=== PATIENT | male | born 1965 | race Caucasian/White ===

== ENCOUNTER 2018-07-09 13:39 | Outpatient (CLI) | payer OTHER ==
[~2018-07-09] VITALS: Ht 188 cm; Wt 105.5 kg
--- NOTE | ~2018-07-09 | HEMODYNAMI ---
PATIENT:ASUNCION KHAN MEDICAL RECORD: [id number] : 67 [id number] ADMISSION DATE: 07/09/18 Generatedon:07/09/201816:20 Patient name: ASUNCION KHAN Patient #: [id number] SSN: DO B: 1965 Date of study: 07/09/2018 Page: Of Hemodynamic Procedure Report Patient Data Patient Demographics Procedure consent was obtained First Name: ASUNCION Gender: Male Last Name: BILL : 1965 Patient #: [id number] Age: 53 year(s) Race: Unknown Additional ID: [id number] Contact details Address: [facility] [address] KNOWN ADDRESS State: [place] City: [facility] Zip code: [address] Past Medical History Allergies: No known allergies Admission Admission Data Admission Date: 07/09/2018 Admission Time: 13:39 Arrival Date: 07/09/2018 Arrival Time: 13:39 Admit Source: Other Room #: D.2128 Weight (lbs.): 230.38 Weight (kg.): 104.5 Lab Results Lab Result Date: 07/09/2018 Lab Result Time: 0:00 Biochemistry Name Units Result Min Max BUN mg/dl 11 --(-*--)-- 7 18 Creatinine mg/dl 1 --(--*-)-- 0.6 1.3 CBC Name Units Result Min Max Hemoglobin g/dl 15.2 --(-*--)-- 13.5 17.5 Procedure Procedure Types Cath Procedure Diagnostic Procedure LHC LHC w/Coronaries PCI Procedure Coronary Stent Coronary Stent Initial Procedure Description Procedure Date Procedure Date: 07/09/2018 Procedure Start Time: 15:54 Procedure End Time: 16:14 Procedure Staff Name Function Viv Jackson RT Monitor Vu Valverde RN Nurse Amanda Núñez RN Lapel Padder Titi Cash MD Performing Physician Stan Rodríguez RT Scrub Procedure Data Cath Procedure Fluoroscopy Diagnostic fluoroscopy Total fluoroscopy Time: 4.8 time: 4.8 min min Diagnostic fluoroscopy Total fluoroscopy dose: dose: 1396 mGy 1396 mGy Contrast Material Contrast Material Type Amount (ml) Isovue 300 101 Entry Location Entry Primary Successful Side Size Upsize Upsize Entry Closure Succes sful Closure Location (Fr) 1 (Fr) 2 (Fr) Remarks Device Remarks Femoral Right 6 Fr Exoseal artery Short Estimated blood loss: 5 ml Diagnostic catheters Device Type Used For End Catheter Placement MULTIPACK Pigtail 5 Fr LV Angiography catheter MULTIPACK JL 4.0 5Fr Left Coronary catheter Angiography MULTIPACK 3DRC 5Fr Right Coronary catheter Angiography Procedure Complications No complications Procedure Medications Medication Administration Route Dosage Oxygen etCO2 Nasal cannula 2 l/min Lidocaine 2% added to field 20 Heparin Flush Bag added to field 2 bags (1000units/500ml NS) 0.9% NaCl I.V. 100 ml/hr Versed I.V. 2 mg Fentanyl I.V. 100 mcg Versed I.V. 2 mg Fentanyl I.V. 100 mcg Heparin Bolus I.V. 4000 units Integrilin (Bolus I.V. 9.5 ml 2mg/ml) Nitroglycerin IC/IA I.C. 200 mcg Hemodynamics Rest HGB: 15.2 (g/dl) Heart Rate: 57 (bpm) Pressure Samples Time Site Value (mmHg) Purpose Heart Use Rate(bpm) 15:57 LV 91/-30,18 Snapshot 63 Snapshots Pre Cath Intra NCS Post Cath Vital Signs Time Heart Resp SPO2 etCO2 NIBP (mmHg) Rhythm Pain Sedation Rate (ipm) (%) (mmHg) Status Level (bpm) 15:51:09 57 16 100 17.9 140/79(111) NSR 0 (11) 10(A) , No pain 15:55:27 59 15 100 25.4 127/77(100) NSR 0 (11) 10(A) , No pain 15:59:41 55 17 100 0 122/73(101) NSR 0 (11) 10(A) , No pain 16:03:51 64 12 98 21.6 126/79(100) NSR 0 (11) 9(A) , No pain 16:08:05 65 13 100 33.6 124/72(89) NSR 0 (11) 9(A) , No pain 16:12:17 80 18 100 26.1 120/73(95) NSR 0 (11) 10(A) , No pain Medications Time Medication Route Dose Verified Delivered Reason Notes Effectiveness by by 15:53:20 Oxygen etCO2 2 Titiagnes Walls used for Nasal l/min Shailesh Cash MD procedure cannula 15:53:58 Lidocaine 2% added 20ml Titi Titi for local to vial Shailesh Cash MD anesthetic field 15:54:05 Heparin Flush added 2 Titiagnes Begumrey used for Bag to bags Shailesh Cash MD procedure (1000units/500ml field NS) 15:54:14 0.9% NaCl I.V. 100 Titi Buffie Per physician ml/hr Shailesh Núñez RN 15:55:53 Versed I.V. 2 mg Titi Joyie for sedation Shailesh Núñez RN 15:56:05 Fentanyl I.V. 100 Titi Buffie for sedation mcg Shailesh Núñez RN 15:58:08 Versed I.V. 2 mg Titi Patel for sedation Shailesh Núñez RN 15:58:12 Fentanyl I.V. 100 Titi Patel for sedation mcg Shailesh Núñez RN 16:04:11 Heparin Bolus I.V. 4000 Titi Joyie for verif ied units Shailesh Núñez RN anticoagulation with dr cash 16:06:29 Integrilin I.V. 9.5 Titi Joyie for waste d (Bolus 2mg/ml) ml Shailesh Núñez RN antiplatelet 0.5 ml therapy of vial 16:10:29 Nitroglycerin I.C. 200 Titi Walls for IC/IA mcg Shailesh Cash MD vasodilation Procedure Log Time Note 15:20:57 Stan Rodríguez RT(R) sent for patient. Start room use. 15:20:58 Time tracking: Regular hours (M-F 7:00 - 5:00) 15:21:02 Plan of Care:Hemodynamics will remain stable., Cardiac rhythm will remain stable., Comfort level will be maintained., Respiratory function will remain adequate., Patient/ family verbilizes understanding of procedure., Procedure tolerated without complication., Recovers from procedure without complications.. 15:28:28 Patient Weight : 230.38 lbs 15:28:32 Admit Source: Other 15:28:39 Arrival Date: 07/09/2018 1:39:00 PM 15:41:40 Patient received from Pre/Post Procedure Room to CCL 1 Alert and oriented. Tansferred to table in Supine position. 15:41:41 Warm blankets applied, and lacey hugger turned on for patient comfort. 15:41:42 Correct patient and procedure confirmed by team. 15:41:44 ECG and BP/O2 sat monitors applied to patient. 15:41:46 Signed procedure consent form obtained from patient. 15:50:01 Vital chart was started 15:50:01 Baseline sample Acquired. 15:50:08 Rhythm: sinus rhythm 15:50:23 Full Disclosure recording started 15:50:37 H&P Date Dictated: 07/09/2018 New H&P dictated by physician.. 15:50:39 Pre-op teaching completed and patient verbalized understanding. 15:50:39 Pre-procedure instructions explained to patient. 15:50:40 Family in waiting room. 15:51:02 Patient NPO since Lunch. 15:51:15 Patient allergic to No known allergies 15:51:18 Is the patient allergic to Iodine/contrast media? No. 15:51:20 Was the patient premedicated? No 15:51:26 Is patient on blood thinner?Yes 15:51:48 ACC The patient was administered the following blood thiners within the last 24 hours: ACCPlavix 15:51:50 Patient diabetic? No. 15:51:52 ----Pre-sedation anethsthesia assessment.---- 15:52:16 Previous problem with sedation/anesthesia? No ? 15:52:18 Snore? Yes 15:52:19 Sleep apnea? No 15:52:20 Deviated septum? No 15:52:22 Opens mouth fully? Yes 15:52:23 Sticks out tongue? Yes 15:52:25 Airway obstruction? No ? 15:52:27 Dentures? No ? 15:52:30 Pre procedure: right dorsailis pedis pulse 2+ Normal; easily identifiable; not easily obliterated 15:52:35 Modified Tremayne's test Ulnar > 7 seconds. 15:52:56 Patient pain scale 0/10 ?. 15:53:02 IV patent on arrival in left antecubital with 0.9% NaCl at 10ml/hr. 15:53:19 Lab Result : Hemoglobin 15.2 g/dl 15:53:19 Lab Result : Creatinine 1 mg/dl 15:53:19 Lab Result : BUN 11 mg/dl 15:53:20 Oxygen 2 l/min etCO2 Nasal cannula was administered by Titi Cash MD; used for procedure; 15:53:22 Lab results completed and on chart. 15:53:25 Right groin area was prepped with chlora-prep and draped in sterile fashion 15:53:26 Alarms reviewed by R. N. 15:53:27 Sharps counted by scrub and verified by R.N. 15:53:31 Physician arrived 15:53:32 --------ALL STOP TIME OUT------ 15:53:33 Final Timeout: patient, procedure, and site verified with staff and physician. All members of the team are in agreement. 15:53:36 Right groin site verified by team. 15:53:39 Physical assessment completed. ASA score P 2 - A patient with mild systemic disease as per Titi Cash MD. 15:53:42 Sedation plan: IV Moderate Sedation Medication:Versed, Fentanyl 15:53:58 Lidocaine 2% 20ml vial added to field was administered by Titi Cash MD; for local anesthetic; 15:54:05 Heparin Flush Bag (1000units/500ml NS) 2 bags added to field was administered by Titi Cash MD; used for procedure; 15:54:14 0.9% NaCl 100 ml/hr I.V. was administered by Amanda Núñez RN; Per physician; 15:54:36 Use device set Femoral Dx 15:54:37 ACIST Syringe (98775) opened to sterile field. 15:54:38 Medline Cath Pack ([id number]) opened to sterile field. 15:54:38 Bag Decanter (2002) opened to sterile field. 15:54:39 DIAGNOSTIC WIRE .035 260cm J wire (273113) opened to sterile field. 15:54:40 ACIST Hand Control (94498) opened to sterile field. 15:54:41 Tegaderm 4 x 4 (1626W) opened to sterile field. 15:54:41 DIAGNOSTIC Multipack 5Fr catheter set (FI3864) opened to sterile field. 15:54:41 ACIST Manifold (01599) opened to sterile field. 15:54:42 SHEATH 5FR [place] (SOU156) opened to sterile field. 15:54:47 Procedure started. 15:54:53 Local anesthetic to right femoral artery with Lidocaine 2% by Titi Cash MD.INITIAL ACCESS ONLY 15:55:00 A 6 Fr Short sheath was inserted into the Right Femoral artery 15:55:46 Baseline sample Acquired. 15:55:53 Versed 2 mg I.V. was administered by Amanda Núñez RN; for sedation; 15:56:05 Fentanyl 100 mcg I.V. was administered by Amanda Núñez RN; for sedation; 15:57:05 A MULTIPACK Pigtail 5 Fr catheter was advanced over the wire and used for LV Angiography. 15:58:01 LV hemodynamics recorded. 15:58:02 LV gram done using MANCINI 15:58:05 Injector settings: Ml/sec: 5, Volume: 15, 15:58:08 Versed 2 mg I.V. was administered by Amanda Núñez RN; for sedation; 15:58:10 EF : 40 % 15:58:12 Fentanyl 100 mcg I.V. was administered by Amanda Núñez RN; for sedation; 15:59:54 Catheter removed. 15:59:55 A MULTIPACK JL 4.0 5Fr catheter was advanced over the wire and used for Left Coronary Angiography. 15:59:59 LCA angiography performed. 16:00:03 Injector settings: Ml/sec: 3, Volume: 6, 16:00:09 Catheter removed. 16:00:50 A MULTIPACK 3DRC 5Fr catheter was advanced over the wire and used for Right Coronary Angiography. 16:00:53 RCA angiography performed. 16:00:56 Injector settings: Ml/sec: 3, Volume: 6, 16:00:59 Catheter removed. 16:01:01 Proceeding to intervention. 16:01:18 INFLATOR Merit BasixCompak (GG1045) opened to sterile field. 16:01:18 CHOICE PT Extra Support 182cm wire ([id number]) opened to sterile field. 16:02:28 GUIDE 6FR AR 2.0 catheter (OT6WW41) opened to sterile field. 16:03:47 6 Fr ar 2 guide catheter was inserted over the wire 16:03:56 choice pt wire advanced. 16:03:57 Wire advanced across lesion. 16:04:11 Heparin Bolus 4000 units I.V. was administered by Buffie Núñez RN; for anticoagulation; verified with dr cash 16:06:29 Integrilin (Bolus 2mg/ml) 9.5 ml I.V. was administered by Amanda Núñez RN; for antiplatelet therapy; wasted 0.5 ml of vial 16:06:43 Place stent Inflation Number: 1 A APOLONIA RX 3.0 x 18 stent ([id number]) was prepped and advanced across the Dist RCA. The stent was deployed at 11 JORDAN for 0:10 (min:sec). 16:07:26 Stent catheter was removed intact over wire. 16:08:29 Place stent Inflation Number: 1 A APOLONIA RX 3.0 x 38 stent ([id number]) was prepped and advanced across the Mid RCA. The stent was deployed at 13 JORDAN for 0:10 (min:sec). 16:08:53 Inflation number: 2 The stent balloon was then re-inflated across the Mid RCA to 19 JORDAN for 0:10 (min:sec). 16:10:29 Nitroglycerin IC/IA 200 mcg I.C. was administered by Titi Cash MD; for vasodilation; 16:11:30 EXOSEAL 6Fr (EX600) opened to sterile field. 16:11:37 Sheath removed intact; hemostasis achieved with Exoseal to the Right Femoral artery. 16:11:39 Procedure ended.(Physican Out) 16:12:01 Fluoroscopy time 04.80 minutes. 16:12:05 Fluoroscopy dose: 1396 mGy 16:12:05 Flurop Dose total: 1396 16:12:10 Contrast amount:Isovue 300 101ml. 16:12:50 Sharps counted by scrub and verified by R.N. 16:13:05 Insertion/operative site no bleeding no hematoma. 16:13:58 Post-op/insertion site Right Femoral artery dressed using a 4 x 4 and Tegaderm. 16:14:01 Post right femoral artery:stable 16:14:02 Post Procedure Pulses reassessed and unchanged 16:14:05 Post procedure rhythm: unchanged. 16:14:07 Estimated blood loss: 5 ml 16:14:09 Patient needs reinforcement of post procedure teaching. 16:14:09 Post procedure instruction explained to patient.Patient verbalizes understanding. 16:14:18 Procedure type changed to Cath procedure, Diagnostic procedure, LHC, LHC w/Coronaries, PCI procedure, Coronary Stent, Coronary Stent Initial 16:14:19 Procedure and supply charges have been captured, reviewed, submitted and are correct. 16:14:30 Procedure Complication : No complications 16:14:33 See physician's report for complete and final results. 16:14:33 Vital chart was stopped 16:14:37 Report given to [facility]. 16:14:40 Patient transfered to [facility] with Stretcher. 16:14:42 Full Disclosure recording stopped 16:14:42 Procedure ended. 16:14:56 ACC-PCI Only Patient was given prescriptions, or instructed by Titi Cash MD to start/continue the following medications upon discharge: Plavix 16:14:58 End room use (Document Last) 16:17:44 End room use (Document Last) Intervention Summary Intervention Notes Time ActionType Lesion and Equipment Used Action# Pressure Duration Attributes 16:06:43 Place stent Dist RCA APOLONIA RX 3.0 x 1 11 00:10 18 stent ([id number]) 16:08:29 Place stent Mid RCA APOLONIA RX 3.0 x 1 13 00:10 38 stent ([id number]) 16:08:53 Reinflate Mid RCA APOLONIA RX 3.0 x 2 19 00:10 stent 38 stent balloon ([id number]) Device Usage Item Name Manufacture Quantity Catalog Number Hospital Part Current M inimal Lot# / Charge Number Stock Stock Serial# Code ACIST Syringe Acist 1 15749 244847 331074 927767 2 0 (36824) Medical Systems Inc Bag Decanter Microtek 1 2001S 673825 57068 255950 5 () Medical Inc. Medline Cath Medline 1 [id number] 167876 93954 989649 5 Pack ([id number]) DIAGNOSTIC St Jeff 1 085192 170949 580084 089789 3 0 WIRE .035 260cm J wire (906041) ACIST Hand Acist 1 52928 302917 987741 359328 5 Control Medical (47903) Systems Inc ACIST Manifold Acist 1 28039 187926 532358 260749 5 (26574) Medical Systems Inc DIAGNOSTIC Cardinal 1 OW9063 221113 07268 021085 3 0 Multipack 5Fr Health catheter set (OQ8705) Tegaderm 4 x 4 3M 1 1626W 518110 270137 751567 5 (1626W) SHEATH 5FR Terumo 1 OOK600 163681 711541 750362 5 [place] (IHF477) MULTIPACK Cardinal 1 467498 5 Pigtail 5 Fr Health catheter MULTIPACK JL Cardinal 1 225981 5 4.0 5Fr Health catheter MULTIPACK 3DRC Cardinal 1 445990 5 5Fr catheter Health CHOICE PT [place] 1 [id number] 667943 732688 216394 5 Extra Support Scientific 182cm wire ([id number]) INFLATOR Merit Merit 1 OS2926 086532 371124 133956 1 5 Kindara (OS6837) GUIDE 6FR AR Medtronic 1 [id number] 794126 93035 133765 1 2.0 catheter (EY6IM70) APOLONIA RX 3.0 x Medtronic 1 [id number] 160580 8700554 122722 5 [id number] 18 stent ([id number]) APOLONIA RX 3.0 x Medtronic 1 [id number] 853346 2455696 873679 5 [id number] 38 stent ([id number]) EXOSEAL 6Fr Cardinal 1 EX600 335460 389358 843532 1 0 (EX600) Health Signature Audit [place] Stage Time Signature Unsigned Intra-Procedure 07/09/2018 Viv Jackson 4:20:19 PM RT(R) Signatures Monitor : Viv Jackson RT Signature : Date : Time : [address] [place] [address]
--- NOTE | ~2018-07-09 | OP ---
PATIENT NAME: ASUNCION KHAN MEDICAL RECORD: [id number] :67 LOCATION:D.M2 D.2128 ADMISSION DATE: SURGEON: DAPHNE YU MD DATE OF OPERATION: 07/10/2018 PROCEDURES: 1. PTCA and stent of LAD. 2. PTCA and stent of left circumflex. 3. Intravascular ultrasound. 4. Selective coronary angiography. INDICATION: Unstable angina and coronary artery disease. PROCEDURE PERFORMED: After informed consent was obtained and after detailed explanation of risks, benefits as well as alternative therapies, the patient elected to proceed with angiogram and angioplasty. The left femoral area was prepped and draped in normal sterile fashion. Left femoral artery was cannulated via modified Seldinger technique with placement of 6-Samoan sheath. All catheters exchanged through this sheath. FINDINGS: The left anterior descending has greater than 75% stenosis confirmed by intravascular ultrasound of the proximal vessel. This was addressed with a 3.5 x 15-mm Farrukh. Result was 0% residual stenosis. PTCA and stent of the left circumflex: The circumflex had multiple areas of greater than 80% to 90% stenosis. This was addressed with a 2.5 x 38-mm [place] stent. Result was 0% residual stenosis. OVERALL IMPRESSION: Successful PTCA and stent of the LAD and circumflex, both going from 80% to 90% initial stenosis to 0% residual. TRANSINT:[id number] Voice Confirmation ID: [id number] DOCUMENT ID: [id number] DAPHNE YU MD CC: [id number] DICTATION DATE: 07/10/18 0926 RADIOLOGY RECEPTIONIST: 07/10/18 [id number] [place] [address]
--- NOTE | ~2018-07-09 | HEMODYNAMI ---
PATIENT:ASUNCION KHAN MEDICAL RECORD: [id number] : 67 [id number] ADMISSION DATE: 07/09/18 Generatedon:07/10/20189:25 Patient name: ASUNCION KHAN Patient #: [id number] SSN: DO B: 1965 Date of study: 07/10/2018 Page: Of Hemodynamic Procedure Report Patient Data Patient Demographics Procedure consent was obtained First Name: ASUNCION Gender: Male Last Name: BILL : 1965 Patient #: [id number] Age: 53 year(s) Race: Unknown Additional ID: [id number] Contact details Address: [address] [place] [address] State: [place] City: [facility] Zip code: [address] Past Medical History Allergies: No known allergies Admission Admission Data Admission Date: 07/09/2018 Admission Time: 13:39 Arrival Date: 07/09/2018 Arrival Time: 13:39 Admit Source: Other Room #: D.2128 Weight (lbs.): 230.38 Weight (kg.): 104.5 Lab Results Lab Result Date: 07/09/2018 Lab Result Time: 0:00 Biochemistry Name Units Result Min Max BUN mg/dl 11 --(-*--)-- 7 18 Creatinine mg/dl 1 --(--*-)-- 0.6 1.3 CBC Name Units Result Min Max Hemoglobin g/dl 15.2 --(-*--)-- 13.5 17.5 Procedure Procedure Types Cath Procedure Diagnostic Procedure FFR/IVUS Intra-Coronary IVUS Initial PCI Procedure Coronary Stent Coronary Stent Initial x2 Procedure Description Procedure Date Procedure Date: 07/10/2018 Procedure Start Time: 9:07 Procedure End Time: 9:24 Procedure Staff Name Function Titi Cash MD Performing Physician Chetna Lopes RT Monitor Vu Valverde RN Nurse Debbie Lang RT Scrub Procedure Data Cath Procedure Fluoroscopy Diagnostic fluoroscopy Total fluoroscopy Time: 3.6 time: 3.6 min min Diagnostic fluoroscopy Total fluoroscopy dose: 663 dose: 663 mGy mGy Contrast Material Contrast Material Type Amount (ml) Isovue 300 78 Entry Location Entry Primary Successful Side Size Upsize Upsize Entry Closure Succes sful Closure Location (Fr) 1 (Fr) 2 (Fr) Remarks Device Remarks Femoral Right 6 Fr Exoseal artery Short Estimated blood loss: 10 ml Procedure Complications No complications Procedure Medications Medication Administration Route Dosage Oxygen etCO2 Nasal cannula 2 l/min Heparin Flush Bag added to field 2 bags (1000units/500ml NS) 0.9% NaCl I.V. 100 ml/hr Lidocaine 2% added to field 20 Fentanyl I.V. 100 mcg Versed I.V. 2 mg Fentanyl I.V. 100 mcg Versed I.V. 2 mg Heparin Bolus I.V. 4000 units Fentanyl I.V. 100 mcg Versed I.V. 2 mg Hemodynamics Rest HGB: 15.2 (g/dl) Heart Rate: 41 (bpm) Snapshots Pre Cath Intra NCS Post Cath Vital Signs Time Heart Resp SPO2 etCO2 NIBP (mmHg) Rhythm Pain Sedation Rate (ipm) (%) (mmHg) Status Level (bpm) 8:46:56 59 17 99 35.2 158/94(121) NSR 0 (11) 10(A) , No pain 8:51:14 70 17 100 29.9 147/96(130) NSR 0 (11) 10(A) , No pain 8:55:30 68 17 99 12.7 141/89(115) NSR 0 (11) 10(A) , No pain 8:59:48 64 16 97 23.9 144/80(124) NSR 0 (11) 10(A) , No pain 9:04:11 69 17 96 29.9 118/82(100) NSR 0 (11) 10(A) , No pain 9:08:53 69 17 88 35.1 139/103(116) NSR 0 (11) 10(A) , No pain 9:13:03 63 16 93 31.4 125/88(115) NSR 0 (11) 9(A) , No pain 9:17:17 68 17 97 36.6 133/81(115) NSR 0 (11) 9(A) , No pain 9:21:31 74 17 96 20.9 135/82(108) NSR 0 (11) 9(A) , No pain Medications Time Medication Route Dose Verified Delivered Reason Notes Effectiveness by by 8:47:12 Oxygen etCO2 2 Titi Vu Per physician Nasal l/min Shailesh Valverde RN cannula 8:47:19 Heparin Flush added 2 Titi Vu used for Bag to bags Shailesh Valverde RN procedure (1000units/500ml field NS) 8:47:28 0.9% NaCl I.V. 100 Titi Vu Per physician ml/hr Shailesh Valverde RN 8:47:38 Lidocaine 2% added 20ml Titi Vu used for to vial Shailesh Valverde RN procedure field 9:05:04 Fentanyl I.V. 100 Titi Vu for sedation mcg Shailesh Valverde RN 9:05:10 Versed I.V. 2 mg Titi Vu for sedation Shailesh Valverde RN 9:07:54 Fentanyl I.V. 100 Titi Vu for sedation mcg Shailesh Valverde RN 9:08:01 Versed I.V. 2 mg Titi Vu for sedation Shailesh Valverde RN 9:10:36 Heparin Bolus I.V. 4000 Titi Vu for units Shailesh Valverde RN anticoagulation 9:13:16 Fentanyl I.V. 100 Titi Vu for sedation mcg Shailesh Valverde RN 9:15:59 Versed I.V. 2 mg Titi Vu for sedation Shailesh Valverde RN Procedure Log Time Note 8:11:10 Patient Weight : 230.38 lbs 8:21:04 Time tracking: Call back (After hours or weekends) 8:21:10 Plan of Care:Hemodynamics will remain stable., Cardiac rhythm will remain stable., Comfort level will be maintained., Respiratory function will remain adequate., Patient/ family verbilizes understanding of procedure., Procedure tolerated without complication., Recovers from procedure without complications.. 8:25:14 Chetna Lopes RT(R) sent for patient. Start room use. 8:45:36 Patient received from PCU to CCL 1 Alert and oriented. Tansferred to table in Supine position. 8:45:37 Warm blankets applied, and lacey hugger turned on for patient comfort. 8:45:37 Correct patient and procedure confirmed by team. 8:45:39 Signed procedure consent form obtained from patient. 8:45:39 Vital chart was started 8:45:39 ECG and BP/O2 sat monitors applied to patient. 8:45:41 Full Disclosure recording started 8:46:37 Baseline sample Acquired. 8:46:41 Rhythm: sinus rhythm 8:46:52 H&P Date Dictated: 07/09/2018 Within 30 days and on chart.. 8:46:53 Pre-procedure instructions explained to patient. 8:46:54 Pre-op teaching completed and patient verbalized understanding. 8:46:55 Family in patients room. 8:46:57 Patient NPO since Midnight. 8:47:09 Is the patient allergic to Iodine/contrast media? No. 8:47:10 Is patient on blood thinner?Yes 8:47:12 Oxygen 2 l/min etCO2 Nasal cannula was administered by Vu Valverde RN; Per physician; 8:47:12 ACC The patient was administered the following blood thiners within the last 24 hours: ACCAspirin, ACCPlavix 8:47:19 Heparin Flush Bag (1000units/500ml NS) 2 bags added to field was administered by Vu Valverde RN; used for procedure; 8:47:28 0.9% NaCl 100 ml/hr I.V. was administered by Vu Valverde RN; Per physician; 8:47:38 Lidocaine 2% 20ml vial added to field was administered by Vu Valverde RN; used for procedure; 8:47:43 Patient diabetic? No. 8:47:46 Previous problem with sedation/anesthesia? No ? 8:47:47 Snore? Yes 8:47:48 Sleep apnea? No 8:47:49 Deviated septum? No 8:47:50 Opens mouth fully? Yes 8:47:51 Sticks out tongue? Yes 8:47:57 Airway obstruction? No ? 8:48:01 Dentures? No ? 8:48:12 Pre procedure: left dorsailis pedis pulse 2+ Normal; easily identifiable; not easily obliterated 8:48:15 Patient pain scale 0/10 ?. 8:48:27 IV patent on arrival in left forearm with 0.9% NaCl at [facility]. 8:48:29 Lab results completed and on chart. 8:48:36 Left groin area was prepped with chlora-prep and draped in sterile fashion 8:48:37 Alarms reviewed by R. N. 8:48:37 Sharps counted by scrub and verified by R.N. 8:48:42 Use device set CATH PACK 8:48:44 Use device set TAUTH PCI 8:48:46 SHEATH 6FR [place] ([id number]) opened to sterile field. 8:48:48 ACIST Syringe (42968) opened to sterile field. 8:48:48 ACIST Hand Control (00791) opened to sterile field. 8:48:49 ACIST Manifold (02160) opened to sterile field. 8:48:50 Medline Cath Pack ([id number]) opened to sterile field. 8:48:50 Bag Decanter (2002S) opened to sterile field. 8:48:51 DIAGNOSTIC WIRE .035 260cm J wire (782672) opened to sterile field. 8:48:51 INFLATOR Merit BasixCompak (QE2195) opened to sterile field. 8:48:53 CHOICE PT Extra Support 182cm wire ([id number]) opened to sterile field. 9:04:40 Final Timeout: patient, procedure, and site verified with staff and physician. All members of the team are in agreement. 9:04:41 Left groin site verified by team. 9:04:44 Physical assessment completed. ASA score P 2 - A patient with mild systemic disease as per Titi Cash MD. 9:04:47 Sedation plan: IV Moderate Sedation Medication:Versed, Fentanyl 9:05:04 Fentanyl 100 mcg I.V. was administered by Vu Valverde RN; for sedation; 9:05:10 Versed 2 mg I.V. was administered by Vu Valverde RN; for sedation; 9:07:12 Procedure started. 9:07:44 Local anesthetic to left femerol artery with Lidocaine 2% by Titi Cash MD.INITIAL ACCESS ONLY 9:07:54 Fentanyl 100 mcg I.V. was administered by Vu Valverde RN; for sedation; 9:08:01 Versed 2 mg I.V. was administered by Vu Valverde RN; for sedation; 9:08:30 A 6 Fr Short sheath was inserted into the Right Femoral artery 9:08:46 GUIDE 6FR XBLAD 3.5 catheter ([id number]) opened to sterile field. 9:09:26 6 Fr XBLAD 3.5 guide catheter was inserted over the wire 9:09:47 Guide Catheter removed. unable to cannulate vessel. 9:09:50 GUIDE 6FR XBLAD 4.0 catheter ([id number]) opened to sterile field. 9:10:22 6 Fr XBLAD 4.0 guide catheter was inserted over the wire 9:10:36 Heparin Bolus 4000 units I.V. was administered by Vu Valverde RN; for anticoagulation; 9:11:23 CHOICE PT ES wire advanced. 9:12:18 [place] Eag[place] IVUS Catheter (99796V) opened to sterile field. 9:13:15 IVUS catheter advanced over wire. 9:13:16 Fentanyl 100 mcg I.V. was administered by Vu Valverde RN; for sedation; 9:14:43 IVUS pass to LAD lesion performed. 9:14:44 IVUS catheter removed over wire. 9:15:19 Place stent Inflation Number: 1 A APOLONIA RX 3.5 x 15 stent ([id number]) was prepped and advanced across the Prox LAD. The stent was deployed at 17 JORDAN for 0:10 (min:sec). 9:15:24 Stent catheter was removed intact over wire. 9:15:30 Wire redirected to CIRC. 9:15:59 Versed 2 mg I.V. was administered by Vu Valverde RN; for sedation; 9:18:41 Place stent Inflation Number: 1 A APOLONIA RX 2.5 x 38 stent ([id number]) was prepped and advanced across the Mid CX. The stent was deployed at 17 JORDAN for 0:07 (min:sec). 9:19:22 Stent catheter was removed intact over wire. 9:19:22 Wire removed. 9:19:23 Guide catheter removed. 9:19:29 Sheath removed intact; hemostasis achieved with Exoseal to the Right Femoral artery. 9:19:31 Procedure ended.(Physican Out) 9:19:35 Fluoroscopy time 03.60 minutes. 9:19:38 Flurop Dose total: 663 9:19:38 Fluoroscopy dose: 663 mGy 9::41 Contrast amount:Isovue 300 78ml. 9:19:43 Sharps counted by scrub and verified by R.N. 9:19:44 Insertion/operative site no bleeding no hematoma. 9:19:47 Post-op/insertion site Left Femoral artery dressed using a 4 x 4 and Tegaderm. 9:19:53 Post left femerol artery:stable, clean and dry 9:20:49 Post Procedure Pulses reassessed and unchanged 9:20:52 Post-procedure physical assessment completed. ASA score P 2 - A patient with mild systemic disease as per Titi Cahs MD. 9:20:54 Post procedure rhythm: unchanged. 9:20:58 Estimated blood loss: 10 ml 9:20:59 Post procedure instruction explained to patient.Patient verbalizes understanding. 9:21:00 Patient needs reinforcement of post procedure teaching. 9:21:20 Procedure type changed to Cath procedure, Diagnostic procedure, FFR/IVUS, Intra-Coronary IVUS Initial, PCI procedure, Coronary Stent, Coronary Stent Initial x2 9:23:29 EXOSEAL 6Fr (EX600) opened to sterile field. 9:23:35 Tegaderm 4 x 4 (1626W) opened to sterile field. 9:24:13 Procedure and supply charges have been captured, reviewed, submitted and are correct. 9:24:17 Procedure Complication : No complications 9:24:19 See physician's report for complete and final results. 9:24:21 Vital chart was stopped 9:24:23 Report given to PCU. 9:24:26 Patient transfered to PCU with Bed. 9:24:57 Procedure ended. 9:24:57 Full Disclosure recording stopped 9:25:01 End room use (Document Last) Intervention Summary Intervention Notes Time ActionType Lesion and Equipment Used Action# Pressure Duration Attributes 9:15:19 Place stent Prox LAD APOLONIA RX 3.5 x 1 17 00:10 15 stent ([id number]) 9:18:41 Place stent Mid CX APOLONIA RX 2.5 x 1 17 00:07 38 stent ([id number]) Device Usage Item Name Manufacture Quantity Catalog Number Hospital Part Current M inimal Lot# / Charge Number Stock Stock Serial# Code SHEATH 6FR Terumo 1 [id number] 363773 140195 4 0 [place] ([id number]) ACIST Syringe Acist 1 43466 808843 506523 789713 2 0 (95427) Medical Systems Inc ACIST Hand Acist 1 56677 284755 610917 034090 5 Control Medical (35939) Systems Inc ACIST Manifold Acist 1 08257 660452 072469 930650 5 (43356) Medical Systems Inc Medline Cath Medline 1 [id number] 254189 72327 434491 5 Pack ([id number]) Bag Decanter Microtek 1 2002S 508635 61181 510444 5 (2001S) Medical Inc. DIAGNOSTIC St Jeff 1 185345 334020 844313 795581 3 0 WIRE .035 260cm J wire (576709) INFLATOR Merit Merit 1 AJ4424 652634 225717 783531 1 5 iKlax Media (GC2027) CHOICE PT Alpine 1 [id number] 542530 578992 351859 5 Extra Support Scientific 182cm wire ([id number]) GUIDE 6FR Cardinal 1 [id number] 743061 228712 512863 1 0 XBLAD 3.5 Health catheter (20485095) GUIDE 6FR Cardinal 1 [id number] 672000 115313 105298 3 XBLAD 4.0 Health catheter (37785652) [place] 1 33633S 133700 160460 271503 8 [place] IVUS Catheter (61216X) APOLONIA RX 3.5 x Medtronic 1 [id number] 910445 4961831 292418 5 [id number] 15 stent ([id number]) APOLONIA RX 2.5 x Medtronic 1 [id number] 577892 0500600 441034 5 [id number] 38 stent ([id number]) EXOSEAL 6Fr Cardinal 1 EX600 727379 099169 104775 1 0 (EX600) Health Tegaderm 4 x 4 3M 1 1626W 916834 380807 322156 5 (1626W) Signature Audit Lue[place]bering Stage Time Signature Unsigned Intra-Procedure 07/10/2018 Chetna 9:25:11 AM Counts RT(R) Signatures Monitor : Chetna Signature : Counts RT Date : Time : [facility] [address] [place] [address]
--- NOTE | ~2018-07-09 | OP ---
PATIENT NAME: ASUNCION KHAN MEDICAL RECORD: [id number] :67 LOCATION:D.M2 D.2128 ADMISSION DATE: SURGEON: DAPHNE YU MD DATE OF OPERATION: 07/09/2018 PROCEDURES: 1. PTCA stent RCA. 2. Left heart catheterization. 3. Selective coronary angiography. 4. Left ventriculogram. INDICATION: Unstable angina and coronary artery disease. PROCEDURE IN DETAIL: After informed consent was obtained and after a detailed explanation of risks, benefits as well as alternative therapies, the patient elected to proceed with angiogram and angioplasty. The right femoral area was prepped and draped in normal sterile fashion. Right femoral artery was cannulated via modified Seldinger technique with placement of 6-Latv[place] sheath. All catheters exchanged through this sheath. FINDINGS: Left ventriculogram was performed in standard 30-degree MANCINI view reveals ejection fraction decreased at 40%. SELECTIVE CORONARY ANGIOGRAPHY: 1. Left main is with no significant angiographic disease. 2. Left anterior descending has previously placed stent with 90% in-stent restenosis proximally. 3. Left circumflex has 95% stenosis in the mid vessel, 80% stenosis in the proximal mid vessel. 4. The right coronary has multiple areas of 80% to 90% stenosis throughout the mid vessel. PTCA STENT OF THE RIGHT CORONARY: Stents used were 3.0 x 38 and 3.0 x 18, both Farrukh stents. Result was 0% residual stenosis. OVERALL IMPRESSION: Successful percutaneous transluminal coronary angioplasty stent of the right coronary artery going from 80% and 90% initial stenosis to 0% residual. PLAN: PTCA stent of the LAD and circumflex tomorrow morning. TRANSINT:[id number] Voice Confirmation ID: [id number] DOCUMENT ID: [id number] DAPHNE YU MD CC: [id number] DICTATION DATE: 07/09/18 1615 ROLL SLICING MACHINE TENDER: 07/09/18 [id number] [place] [address]
--- NOTE | ~2018-07-09 | CN ---
PATIENT NAME:ASUNCION KHAN MEDICAL RECORD: [id number] : 67 LOCATION:[facility].2128 ADMIT DATE: ACCOUNT: [id number] CONSULTING PHYSICIAN: DAPHNE YU MD REFERRING PHYSICIAN: DAPHNE YU MD DATE OF CONSULTATION: 07/09/2018 DIAGNOSES: 1. Unstable angina. 2. Coronary artery disease. 3. Previous cardiac stenting. 4. Hypertension. 5. Hyperlipidemia. HISTORY: This is a gentleman with past history of cardiac stents approximately 4 years ago, who, for the past 2 weeks, has had increasing episodes of chest pain and chest discomfort, compatible with angina. He has had severe episodes of chest discomfort. Today, he continues to have very significant chest pain. REVIEW OF SYSTEMS: The patient reports easy bruising but reports no swollen glands. The patient reports no fever, no night sweats, no significant weight gain, no significant weight loss. No significant exercise tolerance. The patient reports no dry eyes, no irritation, no vision change. Patient reports no difficulty hearing and no ear pain. Patient reports no frequent nose bleeds or nose and sinus problems. Patient reports on arm pain on exertion. No shortness of breath while lying down. No history of heart murmur. Patient reports no cough, no wheezing or coughing up blood. Patient reports no abdominal pain, no vomiting. Normal appetite. No diarrhea and not vomiting blood. No nausea and no constipation. Patient reports no incontinence. No difficulty urinating. No hematuria. No increased frequency. Patient reports no muscle aches. No weakness, no arthralgias, no back pain. No swelling of the extremities. Patient reports no abnormal mole, no jaundice, no rashes. Reports no loss of consciousness. No weakness and no numbness. No seizures, dizziness, or headaches. The patient reports no depression, no sleep disturbance, feeling safe in a relationship and no alcohol abuse. Patient reports on fatigue. Reports no runny nose or sinus pressure. No itching, no hives, and no frequent sneezing. PHYSICAL EXAMINATION: GENERAL APPEARANCE: Well-nourished, well-developed, appears stated age. Level of distress, comfortable. PSYCHIATRIC: Mental status, alert, normal affect. Orientation, oriented to time, place and person. EYES: Lids and conjunctiva, noninjected. No discharge, no pallor. ENT: Lips, teeth, gums, normal dentition. Oropharynx, no cyanosis, no pallor. NECK: Carotid arteries, bilateral normal upstroke, no bruits, no thrills. JUGULAR VEINS: No jugular venous pressure or distention. CERVICAL LYMPH NODES: Nontender, nonenlarged. THYROID: Not enlarged. Nontender. No nodules. LUNGS: Respiratory effort, unlabored. CHEST: Normal curvature. No thoracic deformity. No chest wall tenderness. Percussion, resonant. Auscultation, clear. No wheezes, no rales, no rhonchi. CARDIOVASCULAR: Precordial exam, nondisplaced. No heaves or pericardial thrills. Rate and rhythm, regular. Heart sounds, normal S1, normal S2. No S3, no gallop, no rub. Systolic murmur, not heard. Diastolic murmur, not heard. CONSULT REPORT [id number] ASUNCION KHAN EXTREMITIES: No cyanosis, no edema. Peripheral pulses, full and equal in all extremities, except as noted. No bruits appreciated. ABDOMEN: Soft, nondistended. Normal aorta. No bruit. Nontender. No masses. Liver, nontender, no hepatomegaly. Spleen, nontender, no splenomegaly. MUSCULOSKELETAL: No joint tenderness. No joint swelling. No erythema. NEUROLOGICAL: Normal gait, normal strength, normal tone. SKIN: Warm and dry. OVERALL IMPRESSION: Anginal symptomatology in a markedly unstable fashion. At this time, he continues to have chest pain. [facility] is [facility]; but at this time, he is too unstable for transfer. We will proceed with coronary angiography. Further care depends upon findings of the angiography. TRANSINT:[id number] Voice Confirmation ID: [id number] DOCUMENT ID: [id number] DAPHNE YU MD at 0923 CC: [id number] DICTATION DATE: 07/09/18 1517 WOMEN'S SOCCER COACH: 07/09/18 [address] [facility] [address] [place] [address]
--- NOTE | ~2018-07-09 | DS ---
PATIENT:ASUNCION KHAN :67 MEDICAL RECORD: [id number] DISCHARGE SUMMARY ADMISSION DATE: 07/09/18 DISCHARGE DATE: 07/10/18 DISCHARGE DIAGNOSES: 1. Unstable angina. 2. Coronary artery disease. 3. Percutaneous transluminal coronary angioplasty and stent to the right coronary artery, left anterior descending, and left circumflex this admission. HOSPITAL COURSE: Mr. Khan presents with unstable anginal symptomatology, found to have 3-vessel coronary artery disease, underwent successful PTCA and stent of all 3 vessels, was discharged home with the addition of aspirin and Plavix to his medical regimen. Will follow up with [facility] in 1 month. TRANSINT:[id number] Voice Confirmation ID: [id number] DOCUMENT ID: [id number] DAPHNE YU MD CC: [id number] DICTATION DATE: 07/10/18924 INVESTMENT STRATEGIST: 07/10/18 2350 DEP CLI 07/10/18 [facility] [address] [id number]
[2018-07-09] MEDS ORDERED: BAYER CHEWABLE81 MG PO (14:03)
[2018-07-09] MEDS ORDERED: LISINOPRIL10 MG PO (14:03)
[2018-07-09] MEDS ORDERED: LIPITOR40 MG PO (14:04)
[2018-07-09] MEDS ORDERED: BUPROPION HCL75 MG PO (14:08)
[2018-07-09] MEDS ORDERED: BUPROPION HCL100 M1 PO (14:09)
[2018-07-09 14:15] LABS: BASOPHILS 0.3 % (0-2); EOSINOPHILS 3.6 % (0-7); HEMATOCRIT 43.9 % (42.0-54.0); HEMOGLOBIN 15.2 g/dL (13.5-17.5); IMMATURE GRANULOCYTES 0.2 % (0-5); LYMPHOCYTES 30.3 % (15-50); MCH 32.5 pg (26.0-34.0); MCHC 34.6 g/dL (31.0-37.0); MCV 93.8 fL (80.0-100.0); MEAN PLATELET VOLUME 9.7 fL (7.4-10.4); MONOCYTES 6.3 % (2-11); NEUTROPHILS 59.3 % (40-80); PLATELET COUNT 175 10x3/uL (130-400); RBC 4.68 10x6/uL (4.20-6.10); RDW 13.4 % (11.5-14.5); WBC 6.7 10x3/uL (4.8-10.8)
[2018-07-09 14:24] LABS: APTT 28.7 SECONDS (22.8-39.4); INR 1.07 (0.85-1.17); PROTIME 13.4 SECONDS (11.6-15.0)
[2018-07-09 14:30] LABS: ALBUMIN 3.8 g/dL (3.4-5.0); ALKALINE PHOSPHATASE 102 U/L (46-116); ALT (SGPT) 30 U/L (10-68); BILIRUBIN - TOTAL 0.53 mg/dL (0.2-1.3); CALC OSMOLALITY 276 mosm/kg (275-300); CALCIUM 8.6 mg/dL (8.5-10.1); CARBON DIOXIDE 25.8 mmol/L (21.0-32.0); CHLORIDE - SERUM 105 mmol/L (98-107); GLUCOSE 88 mg/dL (74-106); POTASSIUM - SERUM 4.5 mmol/L (3.5-5.1); PROTEIN - SERUM 7.5 g/dL (6.4-8.2); SODIUM 140 mmol/L (136-145); UREA NITROGEN 11 mg/dL (7-18); eGFR NON AFRICAN AMERICAN 83 mL/min (90-120)
[2018-07-09 14:42] LABS: CKMB 0.7 U/L (0.0-3.6); CREATINE KINASE 135 UL (21-232); MAGNESIUM - SERUM 2.1 mg/dL (1.8-2.4); TROPONIN-I < 0.017 ng/mL (0.000-0.060)
[2018-07-09 17:01] VITALS: BP 120/80; Ht 188 cm; Wt 105.5 kg
[2018-07-09 21:08] VITALS: BP 122/73
[2018-07-10] VITALS: BP 116/78
[2018-07-10 05:49] VITALS: BP 129/86
[2018-07-10 08:01] VITALS: BP 139/89
[2018-07-10 11:17] VITALS: BP 127/78
[2018-07-10] MEDS ORDERED: PLAVIX75 MG PO (13:08)
== END 2018-07-10 14:04 | disposition home or self-care (01) ==
LOC: D.M2 13:39 → D.ER 13:39 → D.OPS 13:39 → EDSTATUS 16:07 → D.M2 16:16 → D.OPS 07-10 14:04
PROVIDERS: Family Medicine
DX: I25.110 Atherosclerotic heart disease of native coronary artery with unstable angina pectoris (principal); I10 Essential (primary) hypertension; E78.5 Hyperlipidemia, unspecified; Z01.812 Encounter for preprocedural laboratory examination

== ENCOUNTER 2019-05-24 13:45 | Emergency (ER) | payer OTHER ==
[~2019-05-24] VITALS: Ht 188 cm; Wt 77.3 kg
[~2019-05-24 13:45] MED LIST: BAYER CHEWABLE81 MG PO; BUPROPION HCL100 M1 PO; BUPROPION HCL75 MG PO; LIPITOR40 MG PO; LISINOPRIL10 MG PO; PLAVIX75 MG PO
[2019-05-24 13:47] VITALS: Ht 188 cm; Wt 77.3 kg
[2019-05-24 14:06] LABS: BASOPHILS 0.5 % (0-2); EOSINOPHILS 2.8 % (0-7); HEMATOCRIT 48.3 % (42.0-54.0); HEMOGLOBIN 16.6 g/dL (13.5-17.5); IMMATURE GRANULOCYTES 0.2 % (0-5); LYMPHOCYTES 25.9 % (15-50); MCH 33.1 pg (26.0-34.0); MCHC 34.4 g/dL (31.0-37.0); MCV 96.4 fL (80.0-100.0); MEAN PLATELET VOLUME 9.7 fL (7.4-10.4); MONOCYTES 5.7 % (2-11); NEUTROPHILS 64.9 % (40-80); PLATELET COUNT 175 10x3/uL (130-400); RBC 5.01 10x6/uL (4.20-6.10); RDW 13.9 % (11.5-14.5); WBC 6.1 10x3/uL (4.8-10.8)
[2019-05-24 14:14] LABS: CALC OSMOLALITY 277 mosm/kg (275-300); CALCIUM 8.6 mg/dL (8.5-10.1); CARBON DIOXIDE 25.1 mmol/L (21.0-32.0); CHLORIDE - SERUM 107 mmol/L (98-107); CREATININE - SERUM 1.1 mg/dL (0.6-1.3); GLUCOSE 121 mg/dL (74-106); SODIUM 139 mmol/L (136-145); UREA NITROGEN 10 mg/dL (7-18); eGFR NON AFRICAN AMERICAN 74 mL/min (90-120)
[2019-05-24 14:31] LABS: ALBUMIN 3.9 g/dL (3.4-5.0); ALKALINE PHOSPHATASE 96 U/L (46-116); ALT (SGPT) 34 U/L (10-68); BILIRUBIN - TOTAL 0.65 mg/dL (0.2-1.3); CKMB 0.3 U/L (0.0-3.6); CREATINE KINASE 96 UL (21-232); PRO BNP 50 pg/mL (0-125); PROTEIN - SERUM 7.4 g/dL (6.4-8.2)
[2019-05-24 14:34] LABS: TROPONIN-I < 0.017 ng/mL (0.000-0.060)
[2019-05-24 18:11] VITALS: BP 132/74
== END 2019-05-24 17:33 | disposition home or self-care (01) ==
LOC: D.ER 13:45
PROVIDERS: Emergency Medicine
DX: J44.1 Chronic obstructive pulmonary disease with (acute) exacerbation (principal)